=== PATIENT | female | born 1955 | race Caucasian/White ===

== ENCOUNTER → 2017-03-21 | Outpatient (CLI) | payer BC ==
[~2017-03-21] MED LIST: NO MEDICATIONS
--- NOTE | ~2017-03-21 | MY11 ---
[facility] A Service of [facility] RADIOLOGY TEXT RESULTS PATIENT: NOAH SANTAMARIA LOCATION: [facility] : 55 UNIT #: [id number] AGE: [address]: Meghan Bernard MD SEX: F ORDER DR: [id number] [address] [address] [id number] MR#: [id number] Acc #: [id number] NAME: NOAH SANTAMARIA : 1955 SEX: F STUDY DATE/TIME: 03/21/2017 11:01 UNIT: [facility] ROOM: STUDY DESCRIPTION: MY Mammogram Screening Dig Jonh Attending Physician: Meghan Bernard M.D. Ordering Physician: Meghan Bernard M.D. Primary Care Physician: Meghan Bernard M.D. MEDICAL IMAGING REPORT This report is preliminary unless electronic signature is present. EXAM Digital screening mammogram with CAD INDICATIONS Routine screening. PROCEDURE Bilateral CC and MLO views obtained on a digital mammography unit. FDA-approved CAD device was utilized. COMPARISON 03/07/2015 FINDINGS Scattered fibroglandular density. No dominant mass or suspicious calcification. IMPRESSION Negative screening mammogram; screening interval of 1 year suggested. Patients over the age of 40 are entered into a reminder system with target due date for the next mammogram. A result letter will also be sent to the patient. BIRADS: 1 Negative Dictated by... Jeff Puri M.D. THIS IS AN ELECTRONICALLY VERIFIED REPORT [facility] A Service of [facility] RADIOLOGY TEXT RESULTS PATIENT: NOAH SANTAMARIA LOCATION: [facility] : 55 UNIT #: [id number] AGE: [address]: Meghan Bernard MD SEX: F ORDER DR: Jeff Puri M.D. at 03/22/2017 7:12 AM Sarai TD: 03/21/2017 19:28 JOB #: [id number] MEDICAL IMAGING REPORT Page 1 of 1
== END | disposition home or self-care (01) ==
LOC: SMAM 07:35
DX: Z12.31 Encounter for screening mammogram for malignant neoplasm of breast (principal)
CPT/HCPCS: G0202

== ENCOUNTER → 2017-04-07 | Outpatient (CLI) | payer BC ==
--- NOTE | ~2017-04-07 | US6 ---
[facility] A Service [facility] RADIOLOGY TEXT RESULTS PATIENT: NOAH SANTAMARIA LOCATION: [facility] : 55 UNIT #: [id number] AGE: [address]: Meghan Bernard MD SEX: F ORDER DR: [id number] [place] [id number] O MR#: [id number] Acc #: [id number] NAME: NOAH SANTAMARIA : 1955 SEX: F STUDY DATE/TIME: 04/07/2017 8:02 UNIT: [facility] ROOM: STUDY DESCRIPTION: US Abdominal Limited Attending Physician: Meghan Bernard M.D. Referring Physician: Meghan Bernard M.D. Ordering Physician: Meghan Bernard M.D. Primary Care Physician: Meghan Bernard M.D. MEDICAL IMAGING REPORT This report is preliminary unless electronic signature is present. EXAM Right upper quadrant abdominal ultrasound INDICATION Elevated liver enzyme levels PROCEDURE Smith-scale and Doppler imaging right upper quadrant of the abdomen. COMPARISON None FINDINGS The majority of the pancreas is obscured by bowel gas and not well seen. The liver has increased echotexture compared with the right kidney. Liver measures 15.7 cm in length. No visible liver mass on submitted images. Right kidney measures 10.0 cm. Previous cholecystectomy. Common duct not well seen. IMPRESSION 1. Increased liver echotexture in keeping with steatosis. 2. Previous cholecystectomy. Dictated by... Jeff Puri M.D. THIS IS AN ELECTRONICALLY VERIFIED REPORT Jeff Puri M.D. at 04/08/2017 3:28 PM ERICK/megan TD: 04/07/2017 10:35 JOB #: [id number] [facility] A Service [facility] RADIOLOGY TEXT RESULTS PATIENT: NOAH SANTAMARIA LOCATION: [facility] : 55 UNIT #: [id number] AGE: [address]: Meghan Bernard MD SEX: F ORDER DR: MEDICAL IMAGING REPORT Page 1 of 1
== END | disposition home or self-care (01) ==
LOC: SGUS 07:50
DX: R74.8 Abnormal levels of other serum enzymes (principal); Z90.49 Acquired absence of other specified parts of digestive tract
CPT/HCPCS: 76705

== ENCOUNTER → 2017-04-20 | Day surgery (SDC) | payer BC ==
--- NOTE | ~2017-04-20 | OR ---
Unit #: [id number] #: [id number] Patient: NOAH SANTAMARIA [id number] [address] [place], [place] [address] [id number] O MR#: [id number] NAME: NOAH SANTAMARIA ROOM: Date of Procedure: 04/20/2017 Admission Date: 04/20/2017 Surgeon: Hung Renner M.D. : 1955 Attending Physician: Hung Renner M.D. Primary Care Physician: Meghan Bernard M.D. OPERATIVE REPORT PREOPERATIVE DIAGNOSES Colorectal cancer screening in an average-risk patient. PROCEDURE PERFORMED Colonoscopy up to cecum and terminal ileum with excellent preparation and good visualization. POSTOPERATIVE DIAGNOSES Completely normal examination up to cecum and terminal ileum except for small internal hemorrhoids. The quality of the prep was excellent. No polyps were seen, and the patient did not have any diverticulosis. RECOMMENDATIONS Repeat colonoscopy in 10 years. SEDATION USED MAC. DESCRIPTION OF PROCEDURE Following detailed explanation of the potential risks and complications of a colonoscopy, namely perforation, bleeding, and complications related to sedation, the patient was brought to GI lab and laid in the left lateral decubitus position. A digital rectal examination was performed, which was normal. Lubricated tip of the Olympus video colonoscope was inserted through the anus and advanced under direct vision. The scope was advanced and passed up to sigmoid into descending colon. No diverticula were noted in this area. The scope tip was then navigated all the way up to cecum with visualization of the ileocecal wall and the appendiceal orifice. Preparation was excellent with good visualization and photodocumentation was obtained. Last several inches of the terminal ileum also visualized after intubation of the ileocecal valve and appeared normal. Successive segments of the colonic mucosa were examined upon withdrawal and appeared unremarkable. There being no polyps, mass lesions, AVMs, or diverticula. The patient did have small internal hemorrhoids at the anal verge, seen on the antegrade examination and on retroflexion. The scope was then withdrawn. The patient returned to the recovery area. She tolerated the procedure without any postprocedure complications. Dictated by... Hung Renner M.D. Unit #: [id number] #: [id number] Patient: NOAH SANTAMARIA DANIEL/carson TD: 04/20/2017 09:39 JOB #: [id number] OPERATIVE REPORT Page 1 of 1 X Hung Renner MD PROCEDURE OPERATIVE NOTE
== END | disposition home or self-care (01) ==
LOC: COPS 06:33
DX: Z12.11 Encounter for screening for malignant neoplasm of colon (principal); K64.8 Other hemorrhoids; M19.90 Unspecified osteoarthritis, unspecified site; Z90.49 Acquired absence of other specified parts of digestive tract; Z98.890 Other specified postprocedural states
CPT/HCPCS: J2250